=== PATIENT | male | born 1965 | race Caucasian/White ===

== ENCOUNTER 2016-12-12 08:29 | Emergency (ER) | payer BC ==
[~2016-12-12] VITALS: Ht 175.3 cm; Wt 96.5 kg
[2016-12-12 08:41] VITALS: TEMP 37.4; O2SAT 96; Ht 175.3 cm; Wt 96.5 kg
[2016-12-12] MEDS ORDERED: SODIUM CHLORIDE 0.9% 1000ML 1,000 ML IV STA (09:06)
[2016-12-12] MEDS ORDERED: CLR10 PO (09:13)
[2016-12-12] MEDS ORDERED: PRLSR20 PO (09:13)
[2016-12-12 09:29] LABS: BASO % 0.5 %; BASO ABS # 0.04 K/uL (0-0.2); COMPLETE YES; EOS % 6.2 %; HEMATOCRIT 49.9 % (42-52); IG% 0.3 %; LYMPH % 21.1 %; LYMPH ABS # 1.54 K/uL (1.2-3.4); MEAN CELL VOLUME 90.7 fL (80-100); MEAN CORPUSCULAR HEMOGLOBIN 30.4 pg (25-34); MEAN CORPUSCULAR HGB CONC 33.5 g/dl (32-36); MEAN PLATELET VOLUME 10.9 fL (7.4-10.4); MONO % 6.7 %; NEUT % 65.2 %; PLATELET COUNT 193 K/uL (130-400)
--- NOTE | 2016-12-12 09:36 | DIAGNOSTIC IMAGING REPORT ---
CHEST 2 VIEWS ROUTINE HISTORY: 51 years-old Male acute right-sided chest pain. COMPARISON: None available TECHNIQUE: Frontal and lateral views of the chest FINDINGS: Cardiac silhouette is upper limits of normal. There is no pneumothorax, pleural effusion or focal airspace consolidation. The bones of the chest. Grossly intact. Multilevel mild endplate spurring is seen throughout the spine. IMPRESSION: No acute cardiopulmonary process. The above report was generated using voice recognition software. It may contain grammatical, syntax or spelling errors. Electronically signed by: Marshal Cruz M.D. 12/12/2016 9:35 AM Dictated Date/Time: 12/12/2016 9:34 AM
[2016-12-12 10:01] LABS: ALT/SGPT 37 U/L (12-78); BLOOD UREA NITROGEN 11 mg/dl (7-18); BUN/CREATININE RATIO 11.6 (10-20); CALCIUM 8.6 mg/dl (8.5-10.1); CARBON DIOXIDE 27 mmol/L (21-32); CHLORIDE 107 mmol/L (98-107); CREATININE 0.98 mg/dl (0.60-1.40); GLUCOSE 118 mg/dl (70-99); SODIUM 141 mmol/L (136-145)
[2016-12-12 10:06] LABS: LYME DISEASE AB IGG NEG (NEG); LYME DISEASE AB IGM NEG (NEG)
[2016-12-12 10:12] LABS: ALB/GLOB RATIO 1.1 (0.9-2); ALKALINE PHOSPHATASE 89 U/L (45-117); AST/SGOT 23 U/L (15-37)
--- NOTE | 2016-12-12 10:37 | EMERGENCY ROOM VISIT NOTE ---
History First contact with patient: 08:46 Chief Complaint: CHEST PAIN Stated Complaint: CHEST PAIN Nursing Triage Summary: patient states he developed right side chest pain yesterday. "seems a little harder to take a deep breath. I was lifting some heavy things on tuesday, but it doesnt hurt worse when you push on it." History of Present Illness The patient is a 51 year old male who presents to the Emergency Room with complaints of right-sided chest pain. The patient states the pain begins in the anterior aspect and radiates through the back to the posterior scapula. The patient states the pain began yesterday morning, and he had been dealing with it all day. The patient states the pain improves with lying down and worsens with sneezing. He states the pain feels throbbing and rates at 3/10 at rest and 5/10 at its worse. The patient has been mowing pastures and preparing the barn recently, so has been active in a different way than normal. The patient states on Tuesday, he had been lifting heavy blocks from the truck. The patient denies dyspnea, but states it is uncomfortable with taking a deep breath. The patient denies headache, dizziness, nausea, vomiting, abdominal pain, diarrhea, constipation. The patient denies history of similar chest pain. The patient states he has had muscular pain in other areas of his body, and this does seem different than that. The patient states he has maybe been more sedentary than normal, but has continued to stay active. The patient denies recent travel. The patient denies any history of blood clots. He denies calf pain or cramping. Review of Systems A complete 10 point review of systems was reviewed with the patient with pertinent positives and negatives as per history of present illness. All else were negative. Past Medical/Surgical History GERD Seasonal Allergies Social History Smoking Status: Never Smoker Smokeless Tobacco Use: No Alcohol Use: none Drug Use: none Marital Status: Housing Status: lives with family Occupation Status: employed Current/Historical Medications Scheduled Loratadine (Claritin), 20 MG PO QAM Omeprazole (Prilosec), 20 MG PO 1100 Physical Exam Vital Signs Date Time Temp Pulse Resp B/P (MAP) Pulse Ox O2 Delivery O2 Flow Rate FiO2 12/12/16 10:55 63 16 128/56 100 12/12/16 09:57 66 16 110/67 96 Room Air 12/12/16 09:13 71 16 135/83 96 Room Air 12/12/16 08:57 71 12/12/16 08:41 96 Room Air 12/12/16 08:41 37.4 72 16 154/87 96 Room Air 12/12/16 08:41 96 Room Air Physical Exam VITALS: Vitals are noted on the nurse's note and reviewed by myself. Vital signs stable. GENERAL: This is an otherwise healthy 51-year-old male, in no acute distress, nondiaphoretic, well-developed well-nourished. SKIN: The skin was without rashes, erythema, edema, or bruising. There is no tenting of the skin. Capillary reflex less than 2 seconds. HEAD: Normocephalic atraumatic. EARS: External auditory canals clear, tympanic membranes pearly griffin without erythema or effusion bilaterally. EYES: Pupils equal round and reactive to light and accommodation. Conjunctivae without injection, sclerae without icterus. Extraocular movements intact. NOSE: Patent, turbinates without inflammation or discharge. No sinus tenderness. MOUTH: Mucous membranes moist. Tonsils are not enlarged. Pharynx without erythema or exudate. Uvula midline. Airway patent. Tongue does not deviate. NECK: Supple without nuchal rigidity. No lymphadenopathy. No thyromegaly. Cervical spine is nontender. No JVD. HEART: Regular rate and rhythm without murmurs gallops or rubs. LUNGS: Clear to auscultation bilaterally without wheezes, rales or rhonchi. No dullness to percussion. No retractions or accessory muscle use. ABDOMEN: Positive bowel sounds x 4. Normal tympanic percussion. Soft, nontender, without masses or organomegaly. Carrera sign negative. No guarding or rebound tenderness. MUSCULOSKELETAL: Mild tenderness to palpation of the anterior and posterior chest wall on the right. No muscle atrophy, erythema, or edema noted. Full range of motion without joint tenderness in all extremities. No tenderness to palpation. Normal gait. Strength 5/5 throughout. NEURO: Patient was alert and oriented to person place and time. Normal sensation to light and sharp touch. Deep tendon reflexes 2+ throughout. No focal neurological deficits. Medical Decision & Procedures ER Provider Diagnostic Interpretation: CXR: FINDINGS: Cardiac silhouette is upper limits of normal. There is no pneumothorax, pleural effusion or focal airspace consolidation. The bones of the chest. Grossly intact. Multilevel mild endplate spurring is seen throughout the spine. IMPRESSION: No acute cardiopulmonary process. LABS: CBC was without leukocytosis, anemia, thrombocytopenia. CMP showed normal electrolytes, normal kidney and liver function. Lipase was negative. D-dimer was negative. Lyme screen was negative. TSH was normal. Troponin and CK-MB were normal. Laboratory Results 12/12/16 08:55 Red Blood Count 5.50, Mean Corpuscular Volume 90.7, Mean Corpuscular Hemoglobin 30.4, Mean Corpuscular Hemoglobin Concent 33.5, Mean Platelet Volume 10.9, Neutrophils (%) (Auto) 65.2, Lymphocytes (%) (Auto) 21.1, Monocytes (%) (Auto) 6.7, Eosinophils (%) (Auto) 6.2, Basophils (%) (Auto) 0.5, Neutrophils # (Auto) 4.76, Lymphocytes # (Auto) 1.54, Monocytes # (Auto) 0.49, Eosinophils # (Auto) 0.45, Basophils # (Auto) 0.04 12/12/16 08:55 Test 12/12/16 08:55 12/12/16 09:06 White Blood Count 7.30 K/uL (4.8-10.8) Red Blood Count 5.50 M/uL (4.7-6.1) Hemoglobin 16.7 g/dL (14.0-18.0) Hematocrit 49.9 % (42-52) Mean Corpuscular Volume 90.7 fL (80-100) Mean Corpuscular Hemoglobin 30.4 pg (25-34) Mean Corpuscular Hemoglobin Concent 33.5 g/dl (32-36) Platelet Count 193 K/uL (130-400) Mean Platelet Volume 10.9 fL (7.4-10.4) Neutrophils (%) (Auto) 65.2 % Lymphocytes (%) (Auto) 21.1 % Monocytes (%) (Auto) 6.7 % Eosinophils (%) (Auto) 6.2 % Basophils (%) (Auto) 0.5 % Neutrophils # (Auto) 4.76 K/uL (1.4-6.5) Lymphocytes # (Auto) 1.54 K/uL (1.2-3.4) Monocytes # (Auto) 0.49 K/uL (0.11-0.59) Eosinophils # (Auto) 0.45 K/uL (0-0.5) Basophils # (Auto) 0.04 K/uL (0-0.2) RDW Standard Deviation 41.3 fL (36.4-46.3) RDW Coefficient of Variation 12.5 % (11.5-14.5) Immature Granulocyte % (Auto) 0.3 % Immature Granulocyte # (Auto) 0.02 K/uL (0.00-0.02) D-Dimer 390 ug/L FEU (0-500) Anion Gap 7.0 mmol/L (3-11) Est Creatinine Clear Calc Drug Dose 99.9 ml/min Estimated GFR () 101.6 Estimated GFR (Non- 87.7 BUN/Creatinine Ratio 11.6 (10-20) Calcium Level 8.6 mg/dl (8.5-10.1) Total Bilirubin 0.6 mg/dl (0.2-1) Aspartate Amino Transf (AST/SGOT) 23 U/L (15-37) Alanine Aminotransferase (ALT/SGPT) 37 U/L (12-78) Alkaline Phosphatase 89 U/L (45-117) Creatine Kinase MB 1.9 ng/ml (0.5-3.6) Troponin I < 0.015 ng/ml (0-0.045) Total Protein 7.0 gm/dl (6.4-8.2) Albumin 3.6 gm/dl (3.4-5.0) Globulin 3.4 gm/dl (2.5-4.0) Albumin/Globulin Ratio 1.1 (0.9-2) Lipase 195 U/L (73-393) Thyroid Stimulating Hormone (TSH) 2.630 uIu/ml (0.300-4.500) Lyme Disease IgG Antibody NEG (NEG) Lyme Disease IgM Antibody NEG (NEG) Creatine Kinase MB Ratio (0-3.0) Medications Administered Medications (Trade) Dose Ordered Sig/Barron Route Start Time Stop Time Status Last Admin Dose Admin Sodium Chloride 1,000 ml @ 250 mls/hr Q4H STAT IV 12/12/16 09:06 12/12/16 11:19 DC 12/12/16 09:56 250 MLS/HR ECG Indication: chest pain Rate (beats per minute): 68 Rhythm: sinus rhythm Findings: no ectopy Comparison ECG Date: no prior available Medical Decision The patient presented with right-sided chest pain, worse with deep breathing and sneezing. I do suspect musculoskeletal etiology of the patient's illness. A cardiac workup was performed based on the patient's age and symptoms. Pulmonary embolism was ruled out with a d-dimer. Chest x-ray did not show any acute infectious or traumatic process. The patient did relax comfortably in the examination room throughout his visit. I did offer him pain medication and he declined. I did discuss discharge instructions the patient and his at bedside. They' re in agreement and understanding. Drug course the patient's care, and to consider etiologies including cardiac etiologies including acute coronary syndrome, pulmonary etiologies including pulmonary embolism, pneumonia, musculoskeletal injury including costochondritis , rib fracture, or muscular strain, Medication Reconcilliation Current Medication List: was personally reviewed by me Blood Pressure Screening Patient's blood pressure: Normal blood pressure Impression Primary Impression: Chest wall pain Departure Information Dispostion Home / Self-Care Condition GOOD Referrals No Doctor, Assigned (PCP) Patient Instructions ED Chest Pain NonCardiac, [facility] Additional Instructions You were seen in the emergency department today for chest wall pain. We did perform a workup to rule out cardiac chest pain, pulmonary embolism, and lyme disease. Based on your recent activity level, I do suspect that your pain is musculoskeletal in nature. Ibuprofen(Motrin, Advil) may be used for fever or pain. Use 600mg every six hours as needed. Take with food. Avoid using more than 2400mg in a 24 hour period. Do not use 2400mg per day for more than three consecutive days without physician direction. Prolonged inappropriate use can lead to stomach upset or ulcers. (AND/OR) Acetaminophen(Tylenol) may be used for fever or pain. Use 1000mg every six to eight hours as needed. Avoid using more than 3000mg in a 24 hour period. Please return to the emergency department for worsening chest pain, chest pain associated with difficulty breathing, swelling in your legs, headache, elevated blood pressure, or other concerning symptoms. Please follow up with a PCP in one week for further evaluation and monitoring of her symptoms. You were given a list of phone numbers and providers in the area by our gis analyst.
[2016-12-12 10:55] VITALS: BP 128/56; PULSE 63; O2SAT 100
== END 2016-12-12 10:55 | disposition home or self-care (01) ==
LOC: C.EDB 08:32 → C.EDA 10:55
DX: R07.89 Other chest pain (principal); K21.9 Gastro-esophageal reflux disease without esophagitis; J30.2 Other seasonal allergic rhinitis